=== PATIENT | female | born 1985 | race Caucasian/White ===

== ENCOUNTER 2020-02-26 09:49 | Outpatient (CLI) | payer OTHER, SELFPAY ==
[2020-02-27 06:44] LABS: SARS-CoV-2 RNA PCR Positive
== END 2020-02-26 09:50 | disposition home or self-care (01) ==
PROVIDERS: PCP Internal Medicine; Visit Provider Internal Medicine
DX: U07.1 COVID-19 (principal)
CPT/HCPCS: 87635; C9803; U0003

== ENCOUNTER 2020-12-07 16:24 | Outpatient (CLI) | payer OTHER, SELFPAY ==
--- NOTE | ~2020-12-07 | XR_ITS ---
EXAMINATION: XR hip BI wo pelvis DATE: 12/07/2020 16:56 INDICATION: Low back pain radiating to the hips. TECHNIQUE: 2 views of right hip and 2 views of left hip were obtained. COMPARISON: None. FINDINGS: Bone alignment is normal. No fracture. There is mild osteoarthritis of the hips. IMPRESSION: 1. Mild osteoarthritis of the hips. Reviewed, dictated and finalized at location A.
--- NOTE | ~2020-12-07 | XR_ITS ---
EXAMINATION: XR lumbar spine 2-3V DATE: 12/07/2020 16:56 INDICATION: Low back pain. TECHNIQUE: 3 views of lumbar spine were obtained. COMPARISON: None. FINDINGS: There is 3 degrees levocurvature of thoracolumbar spine. Vertebral body heights and interve rtebral disc heights are normal. The facet joints are unremarkable. IMPRESSION: 1. No etiology for the patient's symptoms. Reviewed, dictated and finalized at location A.
[2020-12-07 16:47] LABS: Basophils Absolute Auto 0.05 K/mm3 (0.00-0.10); Basophils Percent Auto 0.4 % (0.0-1.0); Eosinophils Absolute Auto 0.15 K/mm3 (0.02-0.50); Eosinophils Percent Auto 1.2 % (1.0-6.0); Hematocrit 42.9 % (35.0-49.0); Hemoglobin 13.3 g/dL (12.0-15.0); Immature Granulocyte Absolute 0.05 K/mm3 (0.00-0.00); Immature Granulocyte Percent A 0.4 % (0.0-0.0); Lymphocytes Absolute Auto 2.23 K/mm3 (1.10-4.50); Lymphocytes Percent Auto 18.4 % (18.0-42.0); Mean Corpuscular Hemoglobin 29.7 pg (27.0-31.0); Mean Corpuscular Volume 95.8 fL (78.0-102.0); Mean Platelet Volume 10.7 fl (9.2-11.8); Monocytes Absolute Auto 0.83 K/mm3 (0.10-0.90); Monocytes Percent Auto 6.9 % (2.0-11.0); Neutrophils Absolute Auto 8.8 K/mm3 (1.7-7.2); Neutrophils Percent Auto 72.7 % (50.0-70.0); Platelet Count Result 297 K/mm3 (150-420); Red Blood Count 4.48 M/mm3 (4.20-5.40); Red Cell Distribution Width 13.1 % (11.6-14.4); White Blood Count 12.1 K/mm3 (4.8-10.8)
[2020-12-07 16:48] LABS: Appearance Urine Clear (Clear); Bilirubin Urine Negative (Negative); Color Urine Light Yellow (Yellow); Glucose Urine UA Negative (Negative); Ketones Urine Negative (Negative); Leukocyte Esterase Ur Negative (Negative); Nitrate Urine Negative (Negative); Protein Urine Negative (Negative); Specific Grav Ur 1.025 (1.010-1.020); pH Urine 6.5 (5.0-8.0)
[2020-12-07 16:52] LABS: Add Urine Microscopic? YES; Blood Urine Trace-Intact (Negative); RBC Urine 0-2 /hpf (0-2); Transitional Epi Cells Urine Few /hpf; WBC Urine 0-3 /hpf (0-3)
[2020-12-07 16:53] LABS: Bacteria Urine None seen /hpf
[2020-12-07 17:33] LABS: Alanine Aminotransferase 24 U/L (14-59); Albumin Level 3.7 g/dL (3.4-5.0); Alkaline Phosphatase 78 U/L (46-116); Anion Gap 8 mmol/L (8-16); Aspartate Amino Transferase 12 U/L (15-37); Bilirubin,Total 0.4 mg/dL (0.00-1.00); Blood Urea Nitrogen 15 mg/dL (7-18); CRP 2.8 mg/dL (0.0-0.9); Calcium 9.1 mg/dL (8.5-10.1); Carbon Dioxide 28 mmol/L (21-32); Chloride 106 mmol/L (98-108); Creatine Kinase 66 U/L (26-192); Estimated Glomerular Filt Rate > 60; Glucose 87 mg/dL (70-99); Magnesium 2.2 mg/dL (1.8-2.4); Osmolality Calculated 293 mOsm/kg (285-295); Phosphorus 3.6 mg/dL (2.6-4.7); Potassium 4.5 mmol/L (3.5-5.1); Sodium 142 mmol/L (136-145); Thyroid Stimulating Hormone 0.86 uIU/mL (0.36-3.74); Total Protein 7.7 g/dL (6.4-8.2)
[2020-12-09 14:39] LABS: Vitamin D 25 Hydroxy 29 ng/mL (30-100)
[2020-12-10 11:03] LABS: Parathyroid Intact 50 pg/mL (14-64)
[2020-12-10 23:48] LABS: Anti Cyclic Citrullinated Pept <16 Units (<20)
[2020-12-10 23:56] LABS: Vitamin D 1,25 (OH)2 Total 47 pg/mL (18-72); Vitamin D2 1,25 (OH)2 <8 pg/mL; Vitamin D3 1,25 (OH)2 47 pg/mL
[2020-12-17 12:44] LABS: SARS-CoV-2 IgG <1.00
== END 2020-12-07 16:25 | disposition home or self-care (01) ==
LOC: CHSLAB 16:26
PROVIDERS: PCP Internal Medicine; Visit Provider Internal Medicine
DX: Z01.84 Encounter for antibody response examination (principal); M79.605 Pain in left leg; M79.604 Pain in right leg; Z20.822 Contact with and (suspected) exposure to COVID-19
CPT/HCPCS: 36415; 72100; 73521; 80053; 81001; 82306; 82550; 82652; 83735; 83970; 84100; 84443; 85025; 86038; 86140; 86200; 86769

== ENCOUNTER 2021-08-15 10:26 | Outpatient (CLI) | payer OTHER, SELFPAY ==
--- NOTE | ~2021-08-15 | XR_ITS ---
XR chest 2V DATE: 08/15/2021 10:54 INDICATION: Checking for murmur. Preoperative evaluation for tonsil surgery. TECHNIQUE: 2 views COMPARISON: None FINDINGS: Normal heart size. No hilar or mediastinal enlargement. No pulmonary infiltrate or consolid ation, pleural effusion or pulmonary vascular congestion or pneumothorax. Included skeletal structures are unremarkable. IMPRESSION: No active cardiopulmonary disease Reviewed, dictated and finalized at location B.
[2021-08-15 10:41] LABS: Basophils Absolute Auto 0.03 K/mm3 (0.00-0.10); Basophils Percent Auto 0.3 % (0.0-1.0); Eosinophils Absolute Auto 0.12 K/mm3 (0.02-0.50); Eosinophils Percent Auto 1.2 % (1.0-6.0); Hematocrit 42.7 % (35.0-49.0); Hemoglobin 13.6 g/dL (12.0-15.0); Immature Granulocyte Absolute 0.03 K/mm3 (0.00-0.00); Immature Granulocyte Percent A 0.3 % (0.0-0.0); Lymphocytes Absolute Auto 1.71 K/mm3 (1.10-4.50); Lymphocytes Percent Auto 16.6 % (18.0-42.0); Mean Corpuscular HGB Conc 31.9 g/dL (32.0-36.0); Mean Corpuscular Hemoglobin 30.8 pg (27.0-31.0); Mean Corpuscular Volume 96.6 fL (78.0-102.0); Mean Platelet Volume 10.7 fl (9.2-11.8); Monocytes Percent Auto 6.8 % (2.0-11.0); Neutrophils Absolute Auto 7.7 K/mm3 (1.7-7.2); Neutrophils Percent Auto 74.8 % (50.0-70.0); Platelet Count Result 267 K/mm3 (150-420); Red Blood Count 4.42 M/mm3 (4.20-5.40); Red Cell Distribution Width 12.7 % (11.6-14.4); White Blood Count 10.3 K/mm3 (4.8-10.8)
[2021-08-15 10:44] LABS: Add Urine Microscopic? NO; Appearance Urine Clear (Clear); Bilirubin Urine Negative (Negative); Blood Urine Negative (Negative); Color Urine Light Yellow (Yellow); Glucose Urine UA Negative (Negative); Ketones Urine Negative (Negative); Leukocyte Esterase Ur Negative (Negative); Nitrate Urine Negative (Negative); Protein Urine Negative (Negative); Specific Grav Ur <= 1.005 (1.010-1.020); Urobilinogen Urine 0.2 mg/dL (0.2-1.0)
--- NOTE | 2021-08-15 11:00 | ECG_ITS ---
Measurements Intervals Moodus Rate: 63 P: 18 CA: 147 QRS: 43 QRSD: 88 T: 18 QT: 409 QTc: 420 Interpretive Statements SINUS RHYTHM DELAYED PRECORDIAL R/S TRANSITION MINIMAL Q WAVES- INFERIOR LEADS BORDERLINE ECG Electronically Signed On 08-15-2021 11:03:08 CDT by Derik Metz D.O.
[2021-08-15 11:19] LABS: Alanine Aminotransferase 15 U/L (14-59); Albumin Level 3.5 g/dL (3.4-5.0); Alkaline Phosphatase 78 U/L (46-116); Anion Gap 7 mmol/L (8-16); Aspartate Amino Transferase < 10 U/L (15-37); Bilirubin,Total 0.5 mg/dL (0.00-1.00); Blood Urea Nitrogen 9 mg/dL (7-18); Calcium 8.9 mg/dL (8.5-10.1); Carbon Dioxide 29 mmol/L (21-32); Chloride 102 mmol/L (98-108); Creatine Kinase 40 U/L (26-192); Estimated Glomerular Filt Rate > 60; Glucose 89 mg/dL (70-99); Osmolality Calculated 283 mOsm/kg (285-295); Potassium 4.2 mmol/L (3.5-5.1); Sodium 138 mmol/L (136-145); Thyroid Stimulating Hormone 0.97 uIU/mL (0.36-3.74); Total Protein 7.5 g/dL (6.4-8.2)
[2021-08-15 14:27] LABS: Uric Acid 4.9 mg/dL (2.6-6.0)
== END 2021-08-15 10:27 | disposition home or self-care (01) ==
LOC: CHSLAB 10:32
PROVIDERS: PCP Internal Medicine; Visit Provider Internal Medicine
DX: R53.83 Other fatigue (principal); R01.1 Cardiac murmur, unspecified; M25.50 Pain in unspecified joint; M35.3 Polymyalgia rheumatica
CPT/HCPCS: 36415; 71046; 80053; 81003; 82550; 84443; 84550; 85025; 86140; 93005

== ENCOUNTER 2021-08-29 14:39 | Outpatient (CLI) | payer OTHER, SELFPAY ==
--- NOTE | 2021-08-29 01:00 | ECHO_ITS ---
Patient Info Name: lAyssa Pryor Age: 35 years : 1985 Gender: Female Ht: 63 in Wt: 190 lbs BSA: 1.99 m2 HR: 78 bpm BP: 136 / 90 mmHg Heart Rhythm: Sinus Rhythm Technical Quality: Fair Exam Date: 08/29/2021 2:33 PM Exam Location: [facility] Patient Status: Outpatient Admit Date: 08/29/2021 Staff Ordering Physician: Holland Nevarez MD Military Aircraft Designer: Kathryn Adams RDCS Attending Provider: Holland Nevarez MD Exam Type: CA echo doppler color flow Study Info Indications - abnormal ekg, fatigue Complete two-dimensional, color flow and Doppler transthoracic echocardiogram is performed. Summary 1. Complete two-dimensional, color flow and Doppler transthoracic echocardiogram is performed. 2. Left ventricular chamber dimension is normal. 3. Left ventricular systolic function is normal, estimated at 60-65%. 4. The left ventricular diastolic function is normal. 5. E/e' 9 is minimally elevated. 6. No pulmonary hypertension, estimated pulmonary arterial systolic pressure is 39 mmHg. Left Ventricle E/e' 9 is minimally elevated. Left ventricular chamber dimension is normal. Left ventricular systolic function is normal, estimated at 60-65%. The left ventricular diastolic function is normal. Right Ventricle Right ventricular systolic function is normal and with normal TAPSE 2.5 cm. Right ventricular chamber dimension is normal. Left Atria Left atrial chamber dimension is normal. Right Atria Right atrial chamber dimension is normal. Aortic Valve The aortic valve is trileaflet. There is no aortic valve stenosis. There is no aortic valve regurgitation. Pulmonic Valve There is no pulmonic regurgitation. Mitral Valve There is no mitral valve stenosis. There is no mitral valve regurgitation. Tricuspid Valve There is no tricuspid valve regurgitation. No pulmonary hypertension, estimated pulmonary arterial systolic pressure is 39 mmHg. Pericardium/Pleural There is no pericardial effusion. Inferior Vena Cava Normal inferior vena cava with >50% collapse upon inspiration consistent with normal right atrial pressure, 5 mmHg. Aorta The aortic root size at the sinus of Valsalva is normal. Left Ventricular Outflow Tract Name Value Normal LVOT 2D LVOT Diameter 1.9 cm LVOT Doppler LVOT Peak Velocity 98 cm/s LVOT Peak Gradient 4 mmHg LVOT Mean Gradient 2 mmHg LVOT VTI 19 cm LVOT VTI/AV VTI Ratio 0.5 LVOT Stroke Volume 52 ml Pulmonic Valve Name Value Normal RVOT Doppler RVOT Peak Gradient 2 mmHg PV Doppler PV Peak Velocity 132 cm/s
== END 2021-08-29 14:40 | disposition home or self-care (01) ==
LOC: CHSIMG 14:40
PROVIDERS: PCP Internal Medicine; Visit Provider Internal Medicine
DX: R94.31 Abnormal electrocardiogram [ECG] [EKG] (principal); R53.83 Other fatigue
CPT/HCPCS: 93306

== ENCOUNTER 2021-09-12 09:12 | Outpatient (CLI) | payer OTHER, SELFPAY ==
[2021-09-12 09:54] LABS: CRP 1.2 mg/dL (0.0-0.9)
[2021-09-14 22:30] LABS: Anti Cyclic Citrullinated Pept <16 Units (<20)
== END 2021-09-12 09:13 | disposition home or self-care (01) ==
LOC: CHSLAB 09:23
PROVIDERS: PCP Internal Medicine; Visit Provider Internal Medicine
DX: R79.9 Abnormal finding of blood chemistry, unspecified (principal)
CPT/HCPCS: 36415; 86038; 86140; 86200

== ENCOUNTER 2021-09-27 14:12 | Outpatient (CLI) | payer OTHER, SELFPAY ==
[2021-09-27 15:27] LABS: SARS-CoV-2 Ag Negative (Negative)
== END 2021-09-27 14:13 | disposition home or self-care (01) ==
LOC: CHSLAB 14:15
PROVIDERS: PCP Internal Medicine; Visit Provider Internal Medicine Critical Care Medicine
DX: Z01.812 Encounter for preprocedural laboratory examination (principal); Z20.822 Contact with and (suspected) exposure to COVID-19
CPT/HCPCS: 87426; C9803

== ENCOUNTER 2021-09-28 19:51 | Outpatient (CLI) | payer OTHER, SELFPAY ==
--- NOTE | 2021-10-25 17:41 | WPDSLEEPSTUD ---
Sleep Study Date of Study: 09/28/21 Ordering Provider: Holland Nevarez MD Interpreting Physician: Shannon Herrera MD Sleep Study Type: Split Polysomnogram Height: 1.57 m Weight: 89.811 kg Body Mass Index: 36.2 Neck Circumference (inches): 16 [place]: 17 Reason for Sleep Study Hypersomnolence Sleep History Alyssa Pryor is a 35 year old female with Excessive daytime sleepiness. Any time she standing still or relaxed, she can fall asleep. This is for sleep test that she has had. She occasionally awakens from sleep feeling short of breath. She occasionally awakens at night with heartburn, belching or coughing. She frequently snores but only rarely isn't loud enough that others complain about it. She does not have trouble sleeping with a cold. She occasionally wakes up gasping for breath at night. She does not have breathing problems at night observed by others. She does not sweat excessively at night or notices her heart pounding or beating irregularly at night. She frequently falls asleep during the day, occasionally falls asleep involuntarily, and occasionally falls asleep while driving. She does not have loss of muscle tone with strong emotion. She occasionally has daytime difficulties due to excessive sleepiness. She does not feel paralyzed on waking or falling asleep. She does not have vivid dreamlike scenes upon awakening or falling asleep. She does not feel afraid to go to sleep. She does not have nightmares. She rarely remembers her dreams, rarely has racing thoughts. She occasionally feels sad, depressed or anxious. She constantly has muscular tension. She occasionally notices parts of her body jerking. She does not kick at night. She occasionally has crawling and aching feelings in her legs. She frequently has leg pain at night. She does not have morning jaw pain. She does not grind her teeth at night. She constantly is bothered by pain during the day. She occasionally is awakened by pain at night. She constantly wakes up feeling stiff in the morning with sore or achy muscles and wakes up with pain in the neck and spine. She has headaches and memory problems. Normal bedtime is midnight. She often will get in the bed at 11:00 p.m. but says that she does not fall asleep until 3:00 a.m.. She wakes up once at night to go urinate or get a drink. These awakenings may last 20 minutes. She is back in the bed until 5:00 a.m.. She estimates getting 5-6 hours of sleep at night but from her description it sounds like even fewer hours. Her weekend schedule is the same. She stays in bed often for long periods of time after waking. She takes naps in the afternoon. A short nap is not refreshing. She is usually drowsy for 2 hours or longer after waking. She frequently wakes with morning headaches and frequently has excessive daytime sleepiness. Habits: Never smoked tobacco. Caffeine: It with his low at 2 glasses of tea a day, 1 soda. No alcohol or recreational drugs. [facility] Past Medical History Medical History (Updated 10/25/21 @ 18:22 by Shannon Herrera MD) Fatigue GERD (gastroesophageal reflux disease) Social History Social History Smoking status: Never smoker Alcohol intake: current Substance use: never Medications Home Medications Medication Instructions Recorded Confirmed Type No Home Medications 09/07/21 09/07/21 History Medications: Hand written medication list : oral contraceptives Sleep Procedure This test was performed using the [employer] multiple channel system including EOG, EEG, submental EMG, EKG, nasal and oral airflow using thermistors and nasal pressure sensors, chest and abdominal belts for body position data, and pulse oximetry. Video monitoring was also performed. The study was scored using CMS guidelines. After the baseline portion the patient met criteria for a titration with an apnea-hypopnea index of 2
[2021-10-25 19:08] VITALS: BMI 36.2
== END 2021-09-29 22:33 | disposition home or self-care (01) ==
LOC: CHSCSM 19:53
PROVIDERS: PCP Internal Medicine; Visit Provider Internal Medicine
DX: G47.33 Obstructive sleep apnea (adult) (pediatric) (principal)
CPT/HCPCS: 95811

== ENCOUNTER 2022-05-30 09:17 | Outpatient (CLI) | payer OTHER, SELFPAY ==
[2022-05-30 09:31] LABS: Basophils Absolute Auto 0.06 K/mm3 (0.00-0.10); Basophils Percent Auto 0.3 % (0.0-1.0); Eosinophils Absolute Auto 0.12 K/mm3 (0.02-0.50); Eosinophils Percent Auto 0.6 % (1.0-6.0); Hematocrit 42.2 % (35.0-49.0); Hemoglobin 13.6 g/dL (12.0-15.0); Immature Granulocyte Absolute 0.08 K/mm3 (0.00-0.00); Immature Granulocyte Percent A 0.4 % (0.0-0.0); Lymphocytes Absolute Auto 1.38 K/mm3 (1.10-4.50); Lymphocytes Percent Auto 7.3 % (18.0-42.0); Mean Corpuscular HGB Conc 32.2 g/dL (32.0-36.0); Mean Corpuscular Hemoglobin 30.4 pg (27.0-31.0); Mean Corpuscular Volume 94.4 fL (78.0-102.0); Mean Platelet Volume 10.3 fl (9.2-11.8); Monocytes Absolute Auto 1.34 K/mm3 (0.10-0.90); Monocytes Percent Auto 7.1 % (2.0-11.0); Neutrophils Absolute Auto 15.8 K/mm3 (1.7-7.2); Neutrophils Percent Auto 84.3 % (50.0-70.0); Platelet Count Result 274 K/mm3 (150-420); Red Blood Count 4.47 M/mm3 (4.20-5.40); Red Cell Distribution Width 13.7 % (11.6-14.4); White Blood Count 18.8 K/mm3 (4.8-10.8)
[2022-05-30 10:03] LABS: Alanine Aminotransferase 20 U/L (14-59); Albumin Level 3.6 g/dL (3.4-5.0); Alkaline Phosphatase 89 U/L (46-116); Anion Gap 8 mmol/L (8-16); Aspartate Amino Transferase < 10 U/L (15-37); Bilirubin,Total 0.6 mg/dL (0.00-1.00); Blood Urea Nitrogen 7 mg/dL (7-18); Calcium 8.6 mg/dL (8.5-10.1); Carbon Dioxide 28 mmol/L (21-32); Chloride 103 mmol/L (98-108); Estimated Glomerular Filt Rate > 60; Glucose 100 mg/dL (70-99); Osmolality Calculated 286 mOsm/kg (285-295); Sodium 139 mmol/L (136-145); Total Protein 7.6 g/dL (6.4-8.2)
[2022-06-02 13:12] LABS: EBV Nuclear Ab Interpretation Past; EBV Virus Capsid Ag IgM Ab <36.00 U/mL (<36.00)
== END 2022-05-30 09:18 | disposition home or self-care (01) ==
PROVIDERS: PCP Internal Medicine; Visit Provider Internal Medicine
DX: J02.9 Acute pharyngitis, unspecified (principal)
CPT/HCPCS: 36415; 80053; 85025; 86664; 86665

== ENCOUNTER 2022-06-22 11:56 | Emergency (ER) | payer OTHER, SELFPAY ==
[2022-06-22 11:58] VITALS: BP 146/90; PULSE 93; RESP 18; TEMP 36.6; O2SAT 98
--- NOTE | 2022-06-22 12:16 | ED.URI ---
HPI - URI/Sore Throat General Chief Complaint: Upper Respiratory Infection Stated Complaint: cold symptoms, congestion Time Seen by Provider: 06/22/22 12:13 Source: patient Mode of arrival: ambulatory Limitations: no limitations History of Present Illness HPI Narrative: this is a 36-year-old female with no significant past medical history that presents with a 5 day history of sinus congestion drainage sore throat mild nonproductive cough with some nasal and chest congestion with no fever chills no audible wheezing no nausea vomiting no abdominal pain no chest pain. MD elicited complaint: cough, sore throat, nasal congestion and sinus pain Onset (ago): day(s) Consistency: constant Severity: moderate Related Data Allergies Allergy/AdvReac Type Severity Reaction Status Date / Time No Known Allergies Allergy Unverified 06/22/22 12:12 Review of Systems Review of Systems: All systems reviewed & are unremarkable except as noted in HPI and below PMFSH Past Medical History Medical History Fatigue GERD (gastroesophageal reflux disease) Social History Social History Smoking status: Never smoker Alcohol intake: current Substance use: never Exam Const: General: healthy appearing Nutritional Appearance: well nourished Orientation/consciousness: patient oriented x3 Limitations: no limitations HENMT: Head: normal to inspection Ears: external ears normal Face/Nose/Sinus: Normal external nose present Face and sinus: normal facial exam Other: Frontal or maxillary sinus tenderness palpation with postnasal drip bilateral ear pressure. Eyes: Conjunctivae: conjunctivae normal EOM: EOMs intact bilaterally Direct Ophthalmoscopy: no photophobia Neck: Neck: normal visual inspection Chest: Chest palpation & inspection: normal inspection of the chest Resp: Effort & Inspection: normal respiratory effort Auscultation: clear to auscultation bilaterally Cardio: Rate: regular rate Rhythm: regular rhythm GI: GI Palp: Yes Soft to palpation Auscultation: normal bowel sounds Skin: General skin exam: normal color Rashes: no rashes Wounds: no wounds Neuro: General: patient oriented x3 Cranial nerves: Yes Nystagmus not present Extrem: General: normal to inspection Psych: Mental Status: mental status grossly normal Affect: normal affect Course Course Emergency Course: COVID influenza in our history reviewed, as well as strep test Vital Signs Vital signs: Vital Signs Temperature 36.6 C 06/22/22 11:58 Pulse Rate 93 06/22/22 11:58 Respiratory Rate 18 06/22/22 11:58 Blood Pressure 146/90 H 06/22/22 11:58 Pulse Oximetry 98 06/22/22 11:58 Oxygen Delivery Room Air 06/22/22 11:58 Temperature 36.6 C 06/22/22 11:58 Pulse Rate 93 06/22/22 11:58 Respiratory Rate 18 06/22/22 11:58 Blood Pressure 146/90 H 06/22/22 11:58 Pulse Oximetry 98 06/22/22 11:58 Oxygen Delivery Room Air 06/22/22 12:10 Critical Care Time Critical Care Time Critical Care Time: No Discharge Plan Discharge Clinical Impression: Sinusitis Qualifiers: Sinusitis location: maxillary Chronicity: acute Recurrence: non-recurrent Qualified Code(s): J01.00 - Acute maxillary sinusitis, unspecified Patient Disposition: Home, Self-Care Condition: Stable Instructions: Antibiotic Form, Sinusitis (ED) Additional Instructions: Advised to take medicine as prescribed, can also take Claritin [id number] daily x1 week and follow up with primary if symptoms persist or worsen. Prescriptions: New azithromycin [Zithromax Z-Rush] 250 mg tablet See Rx Instructions .ROUTE .COMPLEX Qty: 6 0RF Rx Instructions: For 250 mg dose pack: take 500 mg today (day 1), then 250 mg for 4 days (days 2-5) fluticasone propionate [Flonase Allergy Relief] 50 mcg/actuation spray,suspension 2 spray
[2022-06-22 12:58] LABS: Strep Group A RT-PCR NOT DETECTED (Negative)
[2022-06-22 13:06] LABS: Influenza A QL RT-PCR Negative (Negative); Influenza B QL RT-PCR Negative (Negative); SARS-CoV-2 RNA PCR Negative (Negative)
[2022-06-22 13:07] LABS: RSV RNA, RT-PCR Negative (Negative)
== END 2022-06-22 13:22 | disposition home or self-care (01) ==
PROVIDERS: Emergency Provider Emergency Medicine; PCP Internal Medicine
DX: J01.00 Acute maxillary sinusitis, unspecified (principal); Z20.822 Contact with and (suspected) exposure to COVID-19
CPT/HCPCS: 87637; 87651; 99283

== ENCOUNTER 2022-08-07 09:52 | Outpatient (CLI) | payer OTHER, SELFPAY ==
--- NOTE | ~2022-08-07 | XR_ITS ---
Clinical Indication: Chest pain PA and lateral views of the chest: Comparison: 08/15/2021 Findings: The lungs are clear, without evidence of focal consolidation or pleural effusion. Cardiome diastinal silhouette is within normal limits. Bones and soft tissues are unremarkable. Impression: Normal chest. Reviewed, dictated and finalized at location . Impression: Normal chest.
[2022-08-07 10:08] LABS: Hematocrit 40.8 % (35.0-49.0); Hemoglobin 13.3 g/dL (12.0-15.0); Mean Corpuscular HGB Conc 32.6 g/dL (32.0-36.0); Mean Corpuscular Volume 91.9 fL (78.0-102.0); Mean Platelet Volume 10.1 fl (9.2-11.8); Platelet Count Result 163 K/mm3 (150-420); Red Blood Count 4.44 M/mm3 (4.20-5.40); Red Cell Distribution Width 13.4 % (11.6-14.4); White Blood Count 7.4 K/mm3 (4.8-10.8)
[2022-08-07 10:29] LABS: Band Neutrophils Percent 0 % (0-6); Neutrophils Percent Manual 42 % (46-73); Total Cells Counted 100
[2022-08-07 10:30] LABS: Alanine Aminotransferase 41 U/L (14-59); Albumin Level 3.2 g/dL (3.4-5.0); Alkaline Phosphatase 96 U/L (46-116); Anion Gap 9 mmol/L (8-16); Aspartate Amino Transferase 25 U/L (15-37); Bilirubin,Total 0.6 mg/dL (0.00-1.00); Blood Urea Nitrogen 6 mg/dL (7-18); CRP 3.6 mg/dL (0.0-0.9); Calcium 8.7 mg/dL (8.5-10.1); Carbon Dioxide 27 mmol/L (21-32); Chloride 103 mmol/L (98-108); Eosinophils Absolute Manual 0.07 K/mm3 (0.02-0.5); Eosinophils Percent Manual 1 % (1-6); Estimated Glomerular Filt Rate > 60; Glucose 100 mg/dL (70-99); Lymphocytes Percent Manual 46 % (18-44); Monocytes Absolute Manual 0.81 K/mm3 (0.1-0.90); Monocytes Percent Manual 11 % (3-9); Osmolality Calculated 285 mOsm/kg (285-295); Platelet Estimate Adequate (Adequate); Potassium 3.7 mmol/L (3.5-5.1); Sodium 139 mmol/L (136-145); Total Protein 7.4 g/dL (6.4-8.2)
[2022-08-07 10:37] LABS: D Dimer 3.81 mg/L (0.19-0.50)
== END 2022-08-07 09:53 | disposition home or self-care (01) ==
PROVIDERS: PCP Internal Medicine; Visit Provider Internal Medicine
DX: R07.9 Chest pain, unspecified (principal)
CPT/HCPCS: 36415; 71046; 80053; 85025; 85380; 86140

== ENCOUNTER 2022-08-07 11:28 | Emergency (ER) | payer OTHER, SELFPAY ==
[2022-08-07] VITALS (8 sets, daily range): BP systolic 110–128; BP diastolic 71–88; PULSE 75–91; RESP 16–21; TEMP 36.4–36.7; O2SAT 94–100
--- NOTE | ~2022-08-07 | CT_ITS ---
EXAMINATION: CTA chest PE protocol DATE: 08/07/2022 12:46 INDICATION: Pleuritic chest pain. TECHNIQUE: Computed tomography angiography (CTA) of the chest was performed with 100 mL Omnipaque-350 intravenous contrast timed to evaluate the pulmonary arteries. Coronal maximum intensity projection 3D-reconstructions were created by the technologist. Automated exposure control and iterative reconst ruction technique were employed. The dose-length product was 624.28 mGy-cm. COMPARISON: None. FINDINGS: The lungs demonstrate minimal atelectasis. No pleural effusion. The heart size is normal. N o pericardial effusion. The bones are unremarkable. IMPRESSION: 1. No pulmonary embolus. Reviewed, dictated and finalized at location A. IMPRESSION: 1. No pulmonary embolus.
--- NOTE | ~2022-08-07 | US_ITS ---
EXAMINATION: US venous doppler [facility] DATE: 08/07/2022 12:27 INDICATION: Chest pain. TECHNIQUE: Grayscale ultrasound images without and with compression and Doppler ultrasound images of the bilateral lower extremity veins were obtained. COMPARISON: None. FINDINGS: The visualized portions of right common femoral vein, profunda (deep) femoral vein, femoral vein, pop liteal vein, peroneal veins, posterior tibial veins, and greater saphenous vein outflow are patent. The visualized portions of left common femoral vein, profunda femoral vein, femoral vein, popliteal v ein, peroneal veins, posterior tibial veins, and greater saphenous vein outflow are patent. IMPRESSION: 1. No deep venous thrombosis. Reviewed, dictated and finalized at location A.
--- NOTE | 2022-08-07 12:10 | PC.NURSE ---
Pt to ultrasound at this time.
--- NOTE | 2022-08-07 12:23 | ED.RECABL ---
HPI - Recheck/Abnormal Lab/Rx General Chief Complaint: Recheck/Abnormal Lab/Rx Stated Complaint: chest wall pain Time Seen by Provider: 08/07/22 11:36 History of Present Illness HPI narrative: This is a 36-year-old female who denies significant past medical history, presenting to the emergency department from her primary care doctor's office with an elevated D-dimer. The patient states on Sunday, she noted quick onset bilateral back and flank pain with deep breathing. She complains of intermittent cough with deep breathing but denies hemoptysis she states 2 days prior to that she flew to [place] (an approximate 1 hour flight). She states she takes oral contraceptives but denies other recent surgeries or prolonged immobility. She denies chest pain, shortness of breath or lower extremity swelling. Related Data Home Medications Medication Instructions Recorded Confirmed norgestimate-ethinyl estradiol 1 tablet PO DAILY 07/26/22 08/07/22 0.18 mg/0.215mg/0.25mg-35 mcg(28)tablet (Tri-Sprintec (28)) Allergies Allergy/AdvReac Type Severity Reaction Status Date / Time No Known Allergies Allergy Verified 08/07/22 11:39 Review of Systems Review of Systems: CONSTITUTIONAL: Denies fever, chills, or sweats. CARDIOVASCULAR: Denies chest pain, palpitations, or edema. RESPIRATORY: Intermittent nonproductive, nonbloody cough with deep breathing, Bilateral flank pain Denies dyspnea. GASTROINTESTINAL: Denies abdominal pain, nausea, vomiting, or diarrhea. GENITOURINARY: Denies dysuria or hematuria. SKIN: Denies rash or itching. MUSCULOSKELETAL: Denies back pain, joint pain, or myalgia. NEUROLOGIC: Denies headache, numbness, dizziness, or weakness. PSYCHIATRIC: Denies anxiety or depression. [facility] Past Medical History Medical History Fatigue GERD (gastroesophageal reflux disease) Social History Social History Smoking status: Never smoker Alcohol intake: current Substance use: never Exam Narrative: GENERAL: Well-developed, well-nourished, and in no acute distress. HEAD: Normocephalic, atraumatic. EYES: PERRLA and EOMI. ENT: Nares clear, no rhinorrhea or epistaxis. Mucous membranes moist. Oropharynx without tonsillar hypertrophy exudate or other lesions. CHEST: Clear to auscultation. No respiratory distress. No wheezes rales or rhonchi HEART: Regular rate and rhythm. No murmur heard. Normal peripheral pulses. ABDOMEN: Soft, nontender, nondistended, normal active bowel sounds. EXTREMITIES: Normal range of motion. No edema. SKIN: Warm, dry, no rash. NEURO: No focal deficits. Alert and oriented x3. PSYCH: Normal mood and affect. Course Course Emergency Course: 13:04 - CT PE study negative for PE or other acute cardiothoracic process. Bilateral lower extremity DVT study negative. Nursing staff attempted to contact the patient's primary care doctor at both the office and personal phone without answer 13:41 -UA unremarkable. I discussed the patient with her primary care doctor, Dr. Waldron. Will discharge with follow-up. Discussed return and emergency precautions including signs/symptoms of ACS. The patient voiced understanding and is comfortable with the plan. All questions answered to her satisfaction. Vital Signs Vital signs: Vital Signs Temperature 97.6 F 08/07/22 11:28 Pulse Rate 91 08/07/22 11:28 Respiratory Rate 18 08/07/22 11:28 Blood Pressure 128/85 08/07/22 11:28 Pulse Oximetry 96 08/07/22 11:28 Oxygen Delivery Room Air 08/07/22 11:28 Temperature 98.1 F 08/07/22 13:46 Pulse Rate 79 08/07/22 13:46 Respiratory Rate 20 08/07/22 13:46 Blood Pressure 115/78 08/07/22 13:46 Pulse Oximetry 97 08/07/22 13:46 Oxygen Delivery Room Air 08/07/22 11:28 MDM - Recheck/Abnormal Lab/Rx MDM Narrative Medical decision making narrative: Plan: Barbara
--- NOTE | 2022-08-07 12:43 | PC.NURSE ---
Pt returns from imaging. Monitoring resumed. Pt resting comfortably no new needs voiced at this time.
--- NOTE | 2022-08-07 13:17 | PC.NURSE ---
Pt voided approx 25 mL dark yellow urine for specimen. Specimen taken to lab. PT reattached to monitors.
[2022-08-07 13:21] LABS: Appearance Urine Clear (Clear); Bilirubin Urine Negative (Negative); Blood Urine 2+ (Negative); Color Urine Yellow (Yellow); Glucose Urine UA Negative (Negative); Ketones Urine Negative (Negative); Leukocyte Esterase Ur Negative LEU/UL (Negative); Nitrate Urine Negative (Negative); Protein Urine Negative (Negative); Specific Grav Ur <= 1.005 (1.010-1.020)
[2022-08-07 13:24] LABS: Pregnancy On Board Control Positive; Urine Pregnancy Test Negative
[2022-08-07 13:26] LABS: Add Urine Microscopic? YES; Bacteria Urine Trace /hpf; Squamous Epithelial Cell Urine Few /hpf (Few); WBC Urine 0-3 /hpf (0-3)
== END 2022-08-07 13:50 | disposition home or self-care (01) ==
PROVIDERS: Emergency Provider Preventive Medicine Aerospace Medicine; PCP Internal Medicine
DX: R09.1 Pleurisy (principal); R79.1 Abnormal coagulation profile
CPT/HCPCS: 71275; 81001; 81025; 93970; 99284; Q9967

== ENCOUNTER 2023-11-22 11:49 | Outpatient (CLI) | payer OTHER, SELFPAY ==
--- NOTE | ~2023-11-22 | XR_ITS ---
EXAMINATION: XR chest 2V 11/22/2023 12:49 INDICATION: Chest pain PROCEDURE: 2 view chest COMPARISON: 08/07/2022 FINDINGS: The lungs are clear. The cardiomediastinal silhouette is within normal limits. There are no pleural effusions. There is no pneumothorax suspected. IMPRESSION: 1: NO ACUTE CARDIOPULMONARY DISEASE. Reviewed, dictated and finalized at location B.
[2023-11-22 12:07] LABS: Hematocrit 39.2 % (35.0-49.0); Hemoglobin 12.7 g/dL (12.0-15.0); Mean Corpuscular HGB Conc 32.4 g/dL (32-36); Mean Corpuscular Volume 92.7 fL (78.0-102.0); Mean Platelet Volume 10.6 fl (9.2-11.8); Platelet Count Result 285 K/mm3 (150-420); Red Blood Count 4.23 M/mm3 (4.20-5.40); White Blood Count 13.1 K/mm3 (4.8-10.8)
[2023-11-22 12:29] LABS: D Dimer 0.32 mg/L (0.19-0.50)
[2023-11-22 13:26] LABS: Alanine Aminotransferase 23 U/L (14-59); Albumin Level 3.6 g/dL (3.4-5.0); Alkaline Phosphatase 77 U/L (46-116); Amylase 46 U/L (25-115); Anion Gap 6 mmol/L (4-12); Aspartate Amino Transferase 18 U/L (15-37); Bilirubin,Total 0.3 mg/dL (0.00-1.00); Blood Urea Nitrogen 12 mg/dL (7-18); CRP 3.6 mg/dL (0.0-0.9); Calcium 9.4 mg/dL (8.5-10.1); Carbon Dioxide 29 mmol/L (21-32); Chloride 102 mmol/L (98-108); Estimated Glomerular Filt Rate > 60; Glucose 83 mg/dL (70-99); Lipase 35 U/L (16-77); Osmolality Calculated 282 mOsm/kg (285-295); Potassium 4.3 mmol/L (3.5-5.1); Sodium 137 mmol/L (136-145); Total Protein 7.1 g/dL (6.4-8.2)
[2023-11-22 13:29] LABS: Beta HCG Quantitative < 1.00 mIU/mL (0-6)
== END 2023-11-22 11:50 | disposition home or self-care (01) ==
PROVIDERS: PCP Internal Medicine; Visit Provider Internal Medicine
DX: R10.11 Right upper quadrant pain (principal); R07.9 Chest pain, unspecified
CPT/HCPCS: 36415; 71046; 80053; 81003; 82150; 83690; 84702; 85027; 85380; 86140

== ENCOUNTER 2023-11-23 07:37 | Outpatient (CLI) | payer OTHER, SELFPAY ==
--- NOTE | ~2023-11-23 | US_ITS ---
Right upper quadrant. ABDOMINAL ULTRASOUND Ordering provider: Holland Nevarez MD History: . RUQ PAIN . Comparison: None. FINDINGS: LIVER: Normal size and echotexture. No focal hepatic lesions or perihepatic fluid collections are grant ntified. Portal vein flow is normal. GALLBLADDER: Unremarkable. No evidence for stones, sludge, gallbladder wall thickening or pericholecy stic fluid collections. A negative sonographic Ng's sign was noted. BILIARY DUCTS: No evidence for intra or extrahepatic biliary dilation. Common bile duct measures 4.8 mm in diameter which is within normal limits. PANCREAS: Normal echotexture and size. IMPRESSION: Unremarkable complete ultrasound of the abdomen. Reviewed, dictated and finalized at location A.
== END 2023-11-23 07:38 | disposition home or self-care (01) ==
PROVIDERS: PCP Internal Medicine; Visit Provider Internal Medicine
DX: R10.11 Right upper quadrant pain (principal); R07.9 Chest pain, unspecified
CPT/HCPCS: 76705

== ENCOUNTER 2023-12-03 08:28 | Outpatient (CLI) | payer OTHER, SELFPAY ==
--- NOTE | ~2023-12-03 | NM_ITS ---
EXAMINATION: NM hepatobiliary w pharm DATE: 12/03/2023 12:30 CDT INDICATION: Right upper quadrant pain COMPARISON: Ultrasound dated 11/23/2023 TECHNIQUE: 5.3 mCi Tc-99m mebrofenin (Choletec) was administered intravenously. Scintigraphic images of the abdomen were obtained for one hour. At the 1 hour time point, [3 mcg sincalide (Kinevac) was administered by slow intravenous infusion, and imaging was continued for 30 minutes. Gallbladder ejec tion fraction was calculated by the technologist.] FINDINGS: There is normal clearance of radiotracer from the blood pool. There is homogeneous tracer u ptake by the liver. Activity progresses to the gallbladder and bowel. Gallbladder ejection fraction is below normal limits measuring 3% (normal 10-90%, but most patient with gallbladder dysfunction hav e GBEF < 35%).] IMPRESSION: 1. Decreased gallbladder ejection fraction measuring 3%. Reviewed, dictated and finalized at location B.
[2023-12-03 08:41] LABS: Basophils Absolute Auto 0.04 K/mm3 (0.00-0.10); Basophils Percent Auto 0.4 % (0.0-1.0); Eosinophils Absolute Auto 0.14 K/mm3 (0.02-0.50); Eosinophils Percent Auto 1.3 % (1.0-6.0); Hematocrit 40.3 % (35.0-49.0); Immature Granulocyte Absolute 0.04 K/mm3 (0.00-0.00); Immature Granulocyte Percent A 0.4 % (0.0-0.0); Lymphocytes Absolute Auto 3.06 K/mm3 (1.10-4.50); Lymphocytes Percent Auto 27.8 % (18.0-42.0); Mean Corpuscular HGB Conc 32.3 g/dL (32-36); Mean Corpuscular Hemoglobin 30.4 pg (27.0-31.0); Mean Corpuscular Volume 94.2 fL (78.0-102.0); Mean Platelet Volume 10.3 fl (9.2-11.8); Monocytes Absolute Auto 0.75 K/mm3 (0.10-0.90); Monocytes Percent Auto 6.8 % (2.0-11.0); Neutrophils Absolute Auto 6.98 K/mm3 (1.70-7.20); Neutrophils Percent Auto 63.3 % (50.0-70.0); Platelet Count Result 282 K/mm3 (150-420); Red Blood Count 4.28 M/mm3 (4.20-5.40); Red Cell Distribution Width 13.2 % (11.6-14.4)
[2023-12-03 09:20] LABS: CRP 1.8 mg/dL (0.0-0.9)
== END 2023-12-03 08:29 | disposition home or self-care (01) ==
LOC: CHSIMG 08:30
PROVIDERS: PCP Internal Medicine; Visit Provider Internal Medicine
DX: R10.11 Right upper quadrant pain (principal); K82.9 Disease of gallbladder, unspecified
CPT/HCPCS: 36415; 78227; 85025; 86140; A9537; J2805

== ENCOUNTER 2024-05-28 15:19 | Outpatient (CLI) | payer OTHER, SELFPAY ==
--- OUTSIDE RECORDS SUMMARY | 2024-05-28 15:25 | XMS_ITS | Continuity of Care Document ---
Author Organization [facility] Address [address] [place] [address] Phone Care Team Providers Care Machine Filler Shredder Name Role Phone Unavailable Unavailable Unavailable Advance Directives Directive Yes / No Effective Date File Name No Information Encounters Encounter Description Practice Location Reason(s) For Visit Diagnoses Date Provider Providers Copied on Encounter [facility], [address] [facility], [place], [place], [id number], [place] tel:[phone] [facility] No Information No Information Referring Provider: CAROL Short, [address], [place], [address]. tel:[phone] Family History Family Member Type Diagnosis Age At Onset No Information Payers Payer name Insurance type Covered libertarian ID Authorvenkata nirav(s) [facility] [id number] Social History Type Description Quantity Date Captured Comments Sex Female Smoking Status No Information Chief Complaint And Reason For Visit No Information History Of Present Illness Encounter Date Complaint History Of Prese nt Illness No Information Instructions Date Instruction Additional Infor mation No Information Assessments Type Assessment Date No Information
[2024-05-28 15:56] LABS: Strep Group A RT-PCR NOT DETECTED (Negative)
[2024-05-28 16:05] LABS: SARS-CoV-2 RNA PCR Negative (Negative)
[2024-05-28 16:06] LABS: Influenza A QL RT-PCR Positive (Negative); Influenza B QL RT-PCR Negative (Negative); RSV RNA, RT-PCR Negative (Negative)
== END 2024-05-28 15:20 | disposition home or self-care (01) ==
LOC: CHSLAB 15:20
PROVIDERS: PCP Internal Medicine; Visit Provider Internal Medicine
DX: U07.1 COVID-19 (principal); J02.9 Acute pharyngitis, unspecified; J06.9 Acute upper respiratory infection, unspecified
CPT/HCPCS: 87637; 87651